=== PATIENT | female | born 1985 | race Asian ===

== ENCOUNTER → 2020-12-21 00:21 | Outpatient (CLI) | payer BC, SELFPAY ==
[2020-12-21 17:47] LABS: SARS-CoV-2 RNA PCR Negative
== END ==
PROVIDERS: Visit Provider Obstetrics & Gynecology Gynecology
DX: Z01.812 Encounter for preprocedural laboratory examination (principal); Z20.822 Contact with and (suspected) exposure to COVID-19
CPT/HCPCS: C9803; U0003; U0005

== ENCOUNTER 2020-12-24 01:26 | Day surgery (SDC) | payer BC, SELFPAY ==
[2020-12-19 15:05] VITALS: BMI 39.2
--- NOTE | 2020-12-24 07:41 | WPDHPUPDATE1 ---
History and Physical Update Update Date/Time: 12/24/20 07:41 History and Physical has been reviewed, including an updated exam of the patient. There are NO changes in the patient's condition. Risks, benefits, and alternatives have been discussed and questions answered. Patient agrees to proceed with procedure.
--- NOTE | 2020-12-24 07:41 | PM.HPGS ---
History of Present Illness History of Present Illness Consent: Risks, benefits, and alternatives have been discussed and questions answered. Patient agrees to proceed with procedure. Chief complaint: Condylomas Narrative: Mynor Momin is a 35 year old female with chronic perineal and perianal condyloma. Patient has tried several medications as well as TCA in the past. She has decided to proceed with CO2 laser ablation. Reviewed risks of infection, bleeding, pain, scarring, and recurrent/persistent disease. Patient states understanding and agrees to proceed. Review of Systems Review of Systems: Narrative: not repeated day of surgery; patient states no changes in status PMFSH Past Medical History Medical History (Updated 12/24/20 @ 08:06 by April James MD) Ectopic left 2014-managed surgically Spontaneous x 2 Social History Social History Smoking status: Never smoker Second hand tobacco smoke exposure: No Alcohol intake: current Drinks per week: 2 Substance use: never Substance use type: does not use Living arrangements: with family Gender identity (if verbalized by the patient): Female Sexual Orientation (if Verbalized by the Patient): Straight or Heterosexual Spiritual care concerns: No Meds Home Medications and Allergies Home Medications Medication Instructions Recorded Confirmed Type Hair,Skin and Nails(FA-biotin) 1 tablet PO DAILY 12/19/20 12/19/20 History Allergies Allergy/AdvReac Type Severity Reaction Status Date / Time metronidazole Allergy Mild yeast Verified 12/19/20 15:08 infection strawberry AdvReac Itching Verified 12/19/20 15:07 Exam Const: General: no acute distress GI: GI Palp: No abdominal tenderness : External Female Exam: other (condyloma perianal and lower perineum 1/4 cm on average; one midlabial on R) Speculum Exam - Vagina: normal appearance of the vagina Speculum Exam - Cervix: normal appearance of the cervix Bimanual exam- vagina & uterus: normal bimanual exam Assessment and Plan Assessment and plan (1) Condyloma: Code(s): A63.0 - Anogenital (venereal) warts Status: Acute Assessment and Plan: plan CO2 laser ablation of perineal and perianal condyloma
[2020-12-24 08:06] VITALS: BP 153/98; PULSE 88; RESP 16; TEMP 36; O2SAT 100
[2020-12-24] MEDS: LACTATED RINGERS 1,000 ML 30 ML IV CONT (08:32)
--- NOTE | 2020-12-24 08:59 | WPDANESEPPF ---
Anes - Initial Pre Proc Eval Procedure: Operation Date: 12/24/20 10:00 Proposed Procedures p CO2 Laser of Perineum And Rectum - April James MD Date/Time: 12/24/20 08:59 Surgeon: April James MD Pre Op Diagnosis: Condylomas Patient Data Age: 35 Gender: F Height: 5 ft 7 in Weight: 105.2 kg Last Vital Signs Temp 36.0 C L 12/24/20 08:06 Pulse 88 12/24/20 08:06 Resp 16 12/24/20 08:06 BP 153/98 H 12/24/20 08:06 Pulse Ox 100 12/24/20 08:06 Allergies Allergy/AdvReac Type Severity Reaction Status Date / Time strawberry Allergy Intermediate Hives Verified 12/24/20 08:21 Home Medications Medication Instructions Recorded Confirmed Type Hair,Skin and Nails(FA-biotin) 1 tablet PO DAILY 12/19/20 12/24/20 History Patient hx anesthesia problems: none Family hx anesthesia problems: none PMFSH Past Medical History Medical History Ectopic left 2014-managed surgically Spontaneous x 2 Social History Social History Smoking status: Never smoker Second hand tobacco smoke exposure: No Alcohol intake: current Drinks per week: 2 Substance use: never Substance use type: does not use Living arrangements: with family Gender identity (if verbalized by the patient): Female Sexual Orientation (if Verbalized by the Patient): Straight or Heterosexual Spiritual care concerns: No Anes - Eval Final PreProcedure Day of Procedure 12/24/20 08:59 Patient weight: obese Heart: regular rate and rhythm Lungs: clear to auscultation Airway: Mallampati scale class II Neurological: alert and oriented Last oral intake: >/= 8 hours ASA classification: II Emergent: no Anesthetic plan: proceed Anesthesia type and monitoring: general GIVS and standard monitoring Informed Consent: The patient's anesthetic plan and its attendant risks and benefits were discussed with the patient/family/POA. Questions were solicited and answers provided to the satisfaction of the patient/family/POA.
[2020-12-24] MEDS: SILVER SULFADIAZINE 1% CR 50 GM JAR (*BKC) 1 APPLIC TOPICAL (10:37)
[2020-12-24 10:45] VITALS: BP 130/85; PULSE 88; RESP 16; O2SAT 100
--- NOTE | 2020-12-24 10:47 | PM.PROC ---
Procedure Note - Detailed Date of procedure: 12/24/20 Pre-op diagnosis: Condylomas Post-op diagnosis: same Procedure performed: CO2 laser ablation of perineal and perianal condyloma Description of procedure: The patient was placed in the dorsal lithotomy position under anesthesia. She was prepped and draped with wet towels. A wet proctoswab was placed in the rectum. The lesions are injected with 1% lidocaine. Using the CO2 laser on a setting of 5 w the condyloma were removed on the right labia, right inner thigh, left labia, and perianal areas. The wet Ray-Sulaiman was used to remove the charred tissue as the process continued until all condyloma areas are flat. Silvadene cream was placed over the entire area at the completion of the procedure. Sponge, instrument, and needle counts are correct per the OR staff. Anesthesia: MAC and local Surgeon: April James MD Estimated blood loss (mL): 5 Drains: No Packing: No Pathology: none sent Complications: No immediate complications Condition: stable Disposition: PACU Findings: appox 35 condyloma spread between lower labia majora and perianal area; all 1/2 cm or less
[2020-12-24 11:15] VITALS: BP 116/66; PULSE 48
[2020-12-24 11:45] VITALS: BP 134/80; PULSE 49
[2020-12-24] MEDS: oxyCODONE HCL (*CRX) 5 MG TAB IR PO (11:56)
[2020-12-24 12:15] VITALS: BP 142/86; PULSE 53
== END 2020-12-24 12:26 | disposition home or self-care (01) ==
PROVIDERS: Visit Provider Obstetrics & Gynecology Gynecology
PROC: (CPT 56515; principal; 2020-12-24 10:00)
DX: A63.0 Anogenital (venereal) warts (principal); E66.9 Obesity, unspecified; Z68.36 Body mass index [BMI] 36.0-36.9, adult
CPT/HCPCS: 56515; A9270; J2250; J2704; J3010; J7120